=== PATIENT | male | born 1990 | race Caucasian/White ===

== ENCOUNTER 2019-08-10 10:47 | Observation (INO) | payer OTHER ==
[2019-08-10] MEDS ORDERED: SODIUM CHLORIDE 0.9% 1,000 ML IV STA ×2 (10:49)
[2019-08-10] MEDS ORDERED: MORPHINE SULFATE 4 MG/ML SYRINGE IV STA (10:49)
--- NOTE | 2019-08-10 11:13 | ED ---
Abdominal Pain HPI - General Chief Complaint: Abdominal Pain Stated Complaint: diverticulitis Time Seen by Provider: 08/10/19 10:49 Source: EMS Mode of arrival: EMS Limitations: no limitations - History of Present Illness Initial Comments: 29-year-old male presents today for chief complaint of abdominal pain x 1 day. Patient states he has had abdominal pain just above his bellybutton ongoing for the past day he states that he has had vomiting and extreme nausea but denies any lower abdominal pain diarrhea. Patient states he has not vomited since she was at [facility] where he was transferred from because CT of the abdomen pelvis was nonconclusive for differential diagnosis including colitis vs IBD vs appendicitis vs diverticulitis. Patient denies any melanotic stools, constipation, chest pain, shortness of breath. Remaining ROS (-)> Denies known history of IBD. - Related Data Home Medications Medication Instructions Recorded Confirmed No Known Home Medications 08/10/19 08/10/19 Allergies Allergy/AdvReac Type Severity Reaction Status Date / Time No Known Allergies Allergy Unverified 08/10/19 12:09 Review of Systems ROS Statement: Those systems with pertinent positive or pertinent negative responses have been documented in the HPI. ROS Other: All systems not noted in ROS Statement are negative. Past Medical History Past Medical History: No Reported History History of Any Multi-Drug Resistant Organisms: None Reported Past Surgical History: Joint Replacement Additional Past Surgical History / Comment(s): Pyloric stenosis Past Psychological History: No Psychological Hx Reported Smoking Status: Current some day smoker Past Alcohol Use History: Occasional Past Drug Use History: None Reported General Exam - General Exam Comments Initial Comments: General: The patient is awake and alert, appears uncomfortable. Eye: Pupils are equal, round and reactive to light, extra-ocular movements are intact. No nystagmus. There is normal conjunctiva bilaterally. No signs of icterus. Ears, nose, mouth and throat: There are moist mucous membranes and no oral lesions. Neck: The neck is supple, there is no tenderness or JVD. Cardiovascular: There is a regular rate and rhythm. No murmur, rub or gallop is appreciated. Respiratory: Lungs are clear to auscultation, respirations are non-labored, breath sounds are equal. No wheezes, stridor, rales, or rhonchi. Gastrointestinal: Soft, non-distended, abdomen tender to palpation of the epigastric region of the abdomen without masses or organomegaly noted. There is no rebound or guarding present. Musculoskeletal: Normal ROM, no tenderness. Strength 5/5. Sensation intact. Pulses equal bilaterally 2+. Neurological: A&O x 3. CN II-XII intact grossly, There are no obvious motor or sensory deficits. Coordination appears grossly intact. Speech is normal. Skin: Skin is warm and dry and no rashes or lesions are noted. Psychiatric: Cooperative, appropriate mood & affect, normal judgment. Limitations: no limitations Course Vital Signs 08/10/19 08/10/19 08/10/19 10:50 10:53 11:53 Temperature 98.4 F 66 F L 65 F L Pulse Rate 66 Respiratory 18 18 18 Rate Blood Pressure 137/70 142/76 140/72 O2 Sat by Pulse 97 97 97 Oximetry 08/10/19 08/10/19 12:00 12:54 Temperature 63 F L Pulse Rate Respiratory 20 20 Rate Blood Pressure 140/78 O2 Sat by Pulse 97 Oximetry Medical Decision Making - Medical Decision Making 29-year-old male presenting today for chief complaint of abdominal pain transferred for [place] for surgical consultation. Patient pain controlled with morphine in the ER. Patient's laboratory studies were reviewed revealing no elevation in transaminases. Very mild leukocytosis patient is not in acute distress. Patient's CT was reviewed revealing findings consistent with colitis, there are not able to rule appendicitis. Patient was evaluated in the ER by surgeon Dr. Alex olivia admitted to medicine with additional GI consultation. Dr. Suarez is agreeable to admission fo rfurther evaluation of intractable abdominal pain. Disposition Clinical Impression: Abdominal pain, Colitis Disposition: ADMITTED IP TO THIS HOSP Condition: Stable Is patient prescribed a controlled substance at d/c from ED?: No Time of Disposition: 11:50 Decision to Admit Reason: Admit from EC Decision Date: 08/10/19 Decision Time: 11:51
[2019-08-10] MEDS ORDERED: NALOXONE 0.4 MG/ML 1 ML VIAL IV PRN (11:14)
[2019-08-10] MEDS ORDERED: ONDANSETRON 4 MG/2 ML VIAL IVP PRN (11:14)
[2019-08-10] MEDS ORDERED: PIPERACILLIN-TAZOBACTAM 3.375 GM in SODIUM CHLORIDE 0.9% 100 ML IVPB STA (12:13)
--- NOTE | 2019-08-10 13:24 | P.GSCN ---
History of Present Illness Consult date: 08/10/19 Reason for Consult: Abdominal pain History of present illness: The patient stated the pain occurred suddenly yesterday. Initially he denied any previous episodes. Then he admitted he has seen his primary care physician and has had an out patient ultrasound which did not show evidence of cholelithiasis. He believes that the next step in workup is an EGD although he has not seen anyone for this. He will have episodes of epigastric pain and pain radiating to the right abdomen. It can wake him up. He can have nausea. The patient was having vomiting that resolved after receiving Zofran. Had a normal bowel movement yesterday. Denies any problems with diarrhea or constipation. Denies blood in the stool or dark tarry stool. He may have noticed a trace of blood when he vomited yesterday. Patient has a history of pyloric stenosis as an for which she had surgery. Denies fevers or chills. No one else is been ill. Review of Systems All systems: negative Past Medical History Past Medical History: No Reported History History of Any Multi-Drug Resistant Organisms: None Reported Past Surgical History: Joint Replacement Additional Past Surgical History / Comment(s): Pyloromyotomy Past Psychological History: No Psychological Hx Reported Smoking Status: Current some day smoker Past Alcohol Use History: Occasional Past Drug Use History: None Reported Medications and Allergies Home Medications Medication Instructions Recorded Confirmed Type No Known Home Medications 08/10/19 08/10/19 History Allergies Allergy/AdvReac Type Severity Reaction Status Date / Time No Known Allergies Allergy Unverified 08/10/19 12:09 Surgical - Exam Osteopathic Statement: *. No significant issues noted on an osteopathic structural exam other than those noted in the History and Physical/Consult. Vital Signs Temp Pulse Resp BP Pulse Ox 98.4 F 66 18 137/70 97 08/10/19 10:50 08/10/19 10:50 08/10/19 10:50 08/10/19 10:50 08/10/19 10:50 - General well developed, well nourished, no distress - ENT normal mucosa - Neck trachea midline, no lymphadectomy - Respiratory normal respiratory effort, clear to auscultation - Cardiovascular Rhythm: regular - Abdomen Abdomen: soft, tender (Very minimal epigastric tenderness to deep palpation. No tenderness in the lower abdomen), bowel sounds, no guarding, no rigid, no rebound, no distended Results - Labs Labs done at [facility] showed a white count of 10.8, hemoglobin 15.7, normal sodium and potassium, normal liver function tests - Imaging CT scan - abdomen: other (This was first reported from [facility]. There may be some thickened loops of bowel in the lower abdomen and to the left with mild fat stranding) Assessment and Plan (1) Abdominal pain Current Visit: Yes Status: Acute Code(s): R10.9 - UNSPECIFIED ABDOMINAL PAIN SNOMED Code(s): 33646830 Plan: Patient exam is fairly benign. I recommend hydration and antiemetics. Clear liquid diet. Serial exam and lab. Hemoccult any stool. PPI. Currently nonsurgical.
[2019-08-10] MEDS ORDERED: PANTOPRAZOLE 40 MG/10 ML VIAL IVP SCH (13:30)
[2019-08-10] MEDS: MORPHINE SULFATE 4 MG/ML SYRINGE IV PRN ×3 (13:41→21:17)
[2019-08-10] MEDS: KETOROLAC 30 MG/ML 1 ML VIAL IVP SCH ×2 (14:18→17:47)
[2019-08-10] MEDS: DICYCLOMINE 20 MG TAB PO PRN (15:55)
[2019-08-10] MEDS: LEVOFLOXACIN 500MG-D5W PMX 500 MG in DEXTROSE/WATER 1 100ML.BAG IVPB SCH (21:21)
[2019-08-10] MEDS: PANTOPRAZOLE 40 MG/10 ML VIAL IVP SCH (21:22)
[2019-08-10] MEDS: SODIUM CHLORIDE 0.9% 1,000 ML IV SCH (21:23)
[2019-08-10] MEDS: HEPARIN SODIUM,PORCINE 5,000 UNIT/ML 1 ML VIAL SQ SCH (21:57)
[2019-08-10 21:58] LABS: ALT 32 U/L (4-49); AST 22 U/L (17-59); African American GFR (CKD) >90 (>60 ml/min/1.73 sqM); Albumin 3.6 g/dL (3.5-5.0); Alkaline Phosphatase 57 U/L (38-126); Anion Gap 6 mmol/L; Blood Urea Nitrogen 13 mg/dL (9-20); C Reactive Protein 31.4 mg/L (<10.0); Calcium 8.4 mg/dL (8.4-10.2); Carbon Dioxide 23 mmol/L (22-30); Chloride 109 mmol/L (98-107); Glucose 94 mg/dL (74-99); Non-African American GFR(CKD) >90 (>60 ml/min/1.73 sqM); Potassium 4.1 mmol/L (3.5-5.1); Sodium 138 mmol/L (137-145); Total Bilirubin 0.6 mg/dL (0.2-1.3); Total Protein 5.9 g/dL (6.3-8.2)
--- NOTE | 2019-08-10 22:50 | HP ---
HISTORY AND PHYSICAL DATE OF SERVICE: 08/10/2019 CHIEF COMPLAINT: Abdominal pain. HISTORY OF PRESENT ILLNESS: This 29-year-old gentleman with a past medical history of no significant issues being followed by primary physician in the [place] area was complaining of abdominal pain. The patient's previously. Ultrasound was negative. Patient was slated to have gallbladder function studies, but because of increasing pain yesterday the patient went to [facility] and CT scan of the abdomen and pelvis showed some nonspecific thickening of loops of bowel and possibility of inflammation is currently considered and possibility of colitis versus IBD versus appendicitis and diverticulosis was considered in the CT scan report. Patient referred to [facility] and was admitted for further evaluation treatment. There is no history of fever, rigors or chills. No history of headache, loss of consciousness, seizures. Patient reports the patient drinks about half a pot of coffee every day. PAST MEDICAL HISTORY: History of DJD, history of pyloric stenosis in infancy. Medications prior to admission are none. ALLERGIES: None. FAMILY HISTORY: No history of heart disease or strokes in the family. SOCIAL HISTORY: History of smoking. No history of alcohol intake. REVIEW OF SYSTEMS: ENT: No diminished vision. No diminished hearing. CARDIOVASCULAR: No angina. RESPIRATIONS: No cough or hemoptysis. GI as mentioned earlier. no dysuria. Nervous system: No numbness or weakness. Allergy/IMMUNOLOGY: No asthma or hayfever. MUSCULOSKELETAL as mentioned earlier. HEMATOLOGY/ONCOLOGY: No history of anemia. ENDOCRINE: No history of diabetes or hypothyroidism. CONSTITUTIONAL: As mentioned earlier. DERMATOLOGY: Negative. RHEUMATOLOGY: As mentioned earlier. PSYCHIATRIC: As mentioned earlier. PHYSICAL EXAMINATION: Alert and oriented x3. Pulse is 63, blood pressure is 137/74, respiration 18, temperature 97.5, pulse ox 97% on room air. HEENT: Conjunctivae normal. Oral mucosa moist. NECK is no jugular venous distention. No carotid bruit. No lymph node enlargement. CARDIOVASCULAR: S1, S2. RESPIRATION: Breath sounds diminished in the bases. No rhonchi. No crackles. ABDOMEN: Soft, obese, mild diffuse discomfort in the epigastrium, upper part of the abdomen present on admission. No guarding. No rigidity. There is no mass palpable. LEGS: No edema. No swelling. NERVOUS SYSTEM: Higher functions as mentioned earlier. Moves all 4 limbs. No focal motor or sensory deficits. LYMPHATICS: No lymph nodes palpable in the neck, axillae or groin. SKIN: No ulcer, no rash and no bleeding. JOINTS: No active deforming arthropathy. LABS: At this time not available. ASSESSMENT: 1. Abdominal pain, upper abdominal, possible acute gastritis. Rule out enteritis. 2. History of pyloric stenosis surgeries as an . 3. History of degenerative joint disease. 4. History of continued abdominal pain. 5. History of nicotine dependence. RECOMMENDATIONS AND DISCUSSION: In this 29-year-old gentleman who presented with multiple medical issues, at this time I recommend to continue with current medications, management and treatment otherwise proton pump inhibitors. Clear liquids, bland. Avoid coffee. Continue symptomatic treatment also recommended by surgery and as well as a Gastroenterology consultation, possible endoscopes. Guarded prognosis. Further recommendations to follow. Discussed with the patient's family. Understands and agrees. Prognosis guarded. MMODL / IJN: [id number] / MTDD
[2019-08-10] MEDS: metroNIDAZOLE-NS PMX 500 MG in SALINE 1 100ML.BAG IVPB SCH (23:09)
--- NOTE | 2019-08-10 23:35 | P.CONS ---
History of Present Illness - Reason for Consult Consult date: 08/10/19 Abdominal pain Requesting physician: Jass Echeverria - Chief Complaint Abdominal pain - History of Present Illness 29-year-old male with no significant medical comorbidities and a remote history of pyloric stenosis treated surgically as an who presented to the hospital as a transfer from an outside facility where he had presented with complaints of abdominal pain. The patient reported one day of severe abdominal pain. Pain was above the patient's bilirubin and described as sharp and constant in nature. No prior episodes of similar pain reported. He denies any radiation of the pain. He reports some associated nausea and one episode of nonbloody emesis. He denies any change in bowel habits, reporting daily formed bowel movements normal in color with no melena or hematochezia reported. No prior endoscopic evaluations reported. No sick contacts, or unusual foods or new medications reported prior to developing the symptoms. Denies any associated fever or chills. Computed tomography scan performed at the outside facility was concerning for some thickened loops of bowel. Currently he is reporting pain is improved but still present. Liver enzymes normal with normal ESR and mildly elevated CRP at 31. Review of Systems REVIEW OF SYSTEMS: CONSTITUTIONAL: Denies any fevers, chills, weight change or fatigue. CARDIOVASCULAR: Denies any chest pain, palpitations high or low blood pressures RESPIRATORY: Denies any shortness of breath, hemoptysis or cough. GENITOURINARY: No dysuria or hematuria. MUSCULOSKELETAL: No weakness reported. SKIN: Denies any new rashes or lesions, jaundice or pallor. PSYCHIATRIC: Denies any depression or anxiety. NEUROLOGY: Denies headache, denies any new focal deficits. EARS/NOSE/THROAT: No recent hearing change, congestion, nasal discharge or sore throat. EYES: No pain in eyes, discharge or change in vision. GASTROINTESTINAL: As per HPI. Past Medical History Past Medical History: No Reported History History of Any Multi-Drug Resistant Organisms: None Reported Past Surgical History: Joint Replacement Additional Past Surgical History / Comment(s): Right ankle replacement (2009), Pyloromyotomy Past Psychological History: No Psychological Hx Reported Smoking Status: Current some day smoker Past Alcohol Use History: Occasional Past Drug Use History: None Reported Additional History: Family history: Reviewed with the patient is noncontributory to current medical presentation Medications and Allergies Home Medications Medication Instructions Recorded Confirmed Type No Known Home Medications 08/10/19 08/10/19 History Allergies Allergy/AdvReac Type Severity Reaction Status Date / Time No Known Allergies Allergy Unverified 08/10/19 12:09 Physical Exam Vitals: Vital Signs Temp Pulse Pulse Resp BP BP Pulse Ox 08/10/19 13:35 97.4 F L 68 137/76 08/10/19 12:54 20 08/10/19 12:00 63 F L 20 140/78 97 08/10/19 11:53 65 F L 18 140/72 97 08/10/19 10:53 66 F L 18 142/76 97 08/10/19 10:50 98.4 F 66 18 137/70 97 Intake and Output 08/09/19 08/10/19 08/10/19 22:59 06:59 14:59 Intake Total 50 Balance 50 Intake: Intake, IV Titration 50 Amount Sodium Chloride 0.9% 1, 50 000 ml @ 999 mls/hr IV . Q1H1M STA Rx#:[id number] Oral 0 Tube Feeding 0 Other: Weight 113.398 kg On physical examination, patient appears comfortable in no apparent distress. HEAD: Normocephalic, atraumatic. EYES: No scleral icterus. No conjunctival injection. MOUTH: No lesions, tongue midline. NECK: Trachea midline, no gross abnormalities. CHEST: Clear to auscultation with no wheezing or rhonchi appreciated. HEART: Regular rate and rhythm. ABDOMEN: Soft, mildly tender to palpation. Bowel sounds are positive. No organomegaly. No guarding or rigidity. EXTREMITIES: No pedal edema. SKIN: No rashes, no jaundice. NEUROLOGIC: Alert and oriented x3. No focal deficits. Results CBC & Chem 7: 08/10/19 21:18 Abdominal x-ray: report reviewed (Computed tomography scan of the abdomen from outside facility with findings suggestive of some bowel wall thickening) Assessment and Plan (1) Colitis Narrative/Plan: 29-year-old male with no significant medical comorbidities who presented to the hospital for one day of abdominal pain described as above the umbilicus and sharp and constant in nature. No prior episodes of similar pain. Remote history of pyloric stenosis as an infant. Denies any change in bowel habits, fevers, chills, sick contacts, unusual foods or new medications. CT of the abdomen from outside facility was suggestive of bowel wall thickening concerning for colitis. ESR normal and CRP mildly elevated with normal liver enzymes. Unknown etiology with acuity of symptoms suggestive of infectious colitis, ischemia or inflammatory process less likely. Current Visit: Yes Status: Acute Code(s): K52.9 - NONINFECTIVE GASTROENTERITIS AND COLITIS, UNSPECIFIED SNOMED Code(s): 89588863 (2) Abdominal pain Current Visit: Yes Status: Acute Code(s): R10.9 - UNSPECIFIED ABDOMINAL PAIN SNOMED Code(s): 17374723 Plan: Supportive care Clear liquid diet Agree with antibiotic therapy, currently on levofloxacin and Flagyl Bentyl 20 mg 4 times a day as needed added for abdominal spasming Continue to monitor CBC, CMP ESR and CRP ordered No plans for endoscopic evaluation at this time, however patient would benefit from colonoscopy in the outpatient setting in 4-6 weeks for further evaluation which was discussed with the patient at length Thank you for allowing us dysphagia in the care of the patient we'll continue to follow
[2019-08-11] MEDS: KETOROLAC 30 MG/ML 1 ML VIAL IVP SCH ×5 (03:07→23:27)
[2019-08-11 04:04] LABS: Appearance,Urine Clear (Clear); Bilirubin,Urine Negative (Negative); Blood,Urine Negative (Negative); Color,Urine Yellow; Glucose,Urine (UA) Negative (Negative); Ketones,Urine Negative (Negative); Leukocyte Esterase,Urine Negative (Negative); Nitrite,Urine Negative (Negative); PH, Urine 6.5 (5.0-8.0); Protein,Urine Negative (Negative); Urobilinogen,Urine <2.0 mg/dL (<2.0)
[2019-08-11] MEDS: metroNIDAZOLE-NS PMX 500 MG in SALINE 1 100ML.BAG IVPB SCH ×3 (05:01→21:09)
[2019-08-11] MEDS: HEPARIN SODIUM,PORCINE 5,000 UNIT/ML 1 ML VIAL SQ SCH ×2 (07:29→20:05)
[2019-08-11] MEDS: PANTOPRAZOLE 40 MG/10 ML VIAL IVP SCH ×2 (07:30→20:05)
[2019-08-11] MEDS: SODIUM CHLORIDE 0.9% 1,000 ML IV SCH ×2 (07:43→21:09)
[2019-08-11] MEDS: MORPHINE SULFATE 4 MG/ML SYRINGE IV PRN ×4 (08:27→20:05)
[2019-08-11 09:24] LABS: Basophils % (A) 0 %; Eosinophils # (A) 0.2 k/uL (0-0.7); Eosinophils % (A) 3 %; Lymphocytes # (A) 1.5 k/uL (1.0-4.8); Lymphocytes % (A) 27 %; MCH 30.7 pg (25.0-35.0); MCHC 34.2 g/dL (31.0-37.0); MCV 89.8 fL (80.0-100.0); Monocytes # (A) 0.4 k/uL (0-1.0); Monocytes % (A) 7 %; Neutrophils # (A) 3.5 k/uL (1.3-7.7); Neutrophils % (A) 61 %; Platelet Count 159 k/uL (150-450); RBC 4.57 m/uL (4.30-5.90); RDW 13.1 % (11.5-15.5); WBC 5.7 k/uL (3.8-10.6)
[2019-08-11 09:38] LABS: ALT 29 U/L (4-49); AST 21 U/L (17-59); African American GFR (CKD) >90 (>60 ml/min/1.73 sqM); Alkaline Phosphatase 64 U/L (38-126); Anion Gap 8 mmol/L; Blood Urea Nitrogen 11 mg/dL (9-20); C Reactive Protein 44.9 mg/L (<10.0); Calcium 8.8 mg/dL (8.4-10.2); Carbon Dioxide 24 mmol/L (22-30); Chloride 108 mmol/L (98-107); Glucose 118 mg/dL (74-99); Non-African American GFR(CKD) >90 (>60 ml/min/1.73 sqM); Potassium 3.8 mmol/L (3.5-5.1); Sodium 140 mmol/L (137-145); Total Bilirubin 0.7 mg/dL (0.2-1.3); Total Protein 6.4 g/dL (6.3-8.2)
--- NOTE | 2019-08-11 10:44 | P.PN ---
Subjective Progress Note Date: 08/11/19 Principal diagnosis: Abdominal pain The patient is seen on rounds. He is feeling better today. Continues to have epigastric discomfort. No nausea or vomiting. Tolerating clear liquids. No diarrhea . Objective - Vital Signs Vital signs: Vital Signs Temp 97.5 F L 08/11/19 05:00 Pulse 65 08/11/19 05:00 Resp 17 08/11/19 07:53 BP 128/76 08/11/19 05:00 Pulse Ox 96 08/11/19 05:00 Intake & Output 08/10/19 08/11/19 08/11/19 18:59 06:59 18:59 Intake Total 50 475 Balance 50 475 Weight 113.398 kg Intake: Intake, IV Titration 50 Amount Sodium Chloride 0.9% 1, 50 000 ml @ 999 mls/hr IV . Q1H1M STA Rx#:[id number] Oral 0 475 Tube Feeding 0 Other: Voiding Method Toilet Toilet Toilet # Voids 1 - Constitutional General appearance: Present: cooperative, no acute distress - Respiratory Respiratory: bilateral: CTA - Gastrointestinal General gastrointestinal: Present: normal bowel sounds, soft, tenderness (Mild epigastric tenderness without guarding or rebound) - Labs CBC & Chem 7: 08/11/19 08:58 08/11/19 08:58 Labs: Abnormal Lab Results - Last 24 Hours (Table) 08/10/19 08/11/19 Range/Units 21:18 08:58 Chloride 109 H 108 H (98-107) mmol/L Glucose 118 H (74-99) mg/dL C-Reactive Protein 31.4 H 44.9 H (<10.0) mg/L Total Protein 5.9 L (6.3-8.2) g/dL Assessment and Plan (1) Abdominal pain Current Visit: Yes Status: Acute Code(s): R10.9 - UNSPECIFIED ABDOMINAL PAIN SNOMED Code(s): 74018148 Plan: Clinically the patient is improved. There is no leukocytosis. No findings suggestive of acute appendicitis or diverticulitis. I will advance the diet. He was seen by GI yesterday. Recommend follow-up with GI as outpatient for consideration of endoscopy. The patient is nonsurgical. General surgery will follow up as needed.
[2019-08-11 12:50] LABS: Erythrocyte Sedimentation Rate 9 mm/hr (0-15)
[2019-08-11] MEDS: DICYCLOMINE 20 MG TAB PO PRN (17:13)
--- NOTE | 2019-08-11 19:14 | PN ---
PROGRESS NOTE DATE OF SERVICE: 08/11/2019 This 29-year-old gentleman who was admitted with significant upper abdominal symptoms, is being closely monitored. CT scan showed abnormal findings including possible enteritis. Dr. Johnson is following the patient. Symptomatic treatment is being offered at this time. The patient is on full liquids currently. There is no evidence of acute appendicitis or diverticulitis per Dr. Johnson. GI is planning endoscopies most likely as an outpatient. PAST MEDICAL HISTORY: Reviewed. REVIEW OF SYSTEMS: CARDIOVASCULAR SYSTEM: No angina. RESPIRATORY: As mentioned earlier. GI: As mentioned earlier. : No dysuria. NERVOUS SYSTEM: As mentioned earlier. CURRENT MEDICATIONS: 1. Bentyl 10 mg b.i.d. p.r.n. 2. Heparin subcu b.i.d. 3. Toradol 30 mg q.6h p.r.n. 4. Levaquin 500 mg b.i.d. 5. Flagyl 500 mg q.8h. 6. Morphine. 7. Narcan. 8. Zofran. 9. Protonix. PHYSICAL EXAM: Patient is alert oriented x3. Pulse 65, blood pressure 130/72, respiration 18, temperature 97.4, pulse ox 98% on room air. HEENT: Conjunctivae normal. Oral mucosa moist. NECK: No jugular venous distention. No lymph node enlargement. CARDIOVASCULAR: S1, S2. RESPIRATORY: Diminished breath sounds at the bases. No rhonchi, no crackles. ABDOMEN: Soft. Mild diffuse discomfort on palpation, especially the epigastrium. No guarding. There is no mass palpable. LEGS: No swelling. NERVOUS SYSTEM: No focal deficits. LABS: WBC 5.2, hemoglobin 14. ESR is 6. CRP is 31.4, which is slightly elevated. ASSESSMENT: 1. Abdominal pain, upper abdominal pain, possible acute gastritis. Rule out enteritis. 2. History of pyloric stenosis surgery as an infant. 3. History of degenerative joint disease. 4. History of continued abdominal pain. 5. History of nicotine dependence. 6. Elevated CRP. RECOMMENDATIONS AND DISCUSSION: In this 29-year-old gentleman who presented with multiple complex medical issues, we will monitor the patient closely, continue the current management and symptomatic treatment. I recommend continuing with Protonix twice daily and I would also recommend continue with IV fluids. Advance diet slowly. Otherwise, I would also recommend course of empiric antibiotics as well. Otherwise, closely follow with Surgery and Gastroenterology. Prognosis guarded because of multiple complex medical issues. The patient also might require a repeat CT scan down the line if continues to be symptomatic. Discussed with the patient and the family and understands. Further recommendations to follow. MMODL / IJN: [id number] /
[2019-08-11] MEDS: LEVOFLOXACIN 500MG-D5W PMX 500 MG in DEXTROSE/WATER 1 100ML.BAG IVPB SCH (20:04)
[2019-08-12] MEDS: MORPHINE SULFATE 4 MG/ML SYRINGE IV PRN ×2 (02:16→07:41)
[2019-08-12] MEDS: KETOROLAC 30 MG/ML 1 ML VIAL IVP SCH (05:00)
[2019-08-12] MEDS: SODIUM CHLORIDE 0.9% 1,000 ML IV SCH (05:01)
[2019-08-12] MEDS: metroNIDAZOLE-NS PMX 500 MG in SALINE 1 100ML.BAG IVPB SCH (05:01)
[2019-08-12 05:24] VITALS: BP 135/73; PULSE 55; RESP 15; TEMP 97.5
[2019-08-12] MEDS: PANTOPRAZOLE 40 MG/10 ML VIAL IVP SCH (07:42)
[2019-08-12] MEDS: HEPARIN SODIUM,PORCINE 5,000 UNIT/ML 1 ML VIAL SQ SCH (09:26)
[2019-08-12 09:36] LABS: Basophils % (A) 0 %; Eosinophils # (A) 0.1 k/uL (0-0.7); Eosinophils % (A) 3 %; HCT 41.3 % (39.0-53.0); HGB 13.9 gm/dL (13.0-17.5); Lymphocytes # (A) 1.6 k/uL (1.0-4.8); Lymphocytes % (A) 34 %; MCH 30.4 pg (25.0-35.0); MCHC 33.7 g/dL (31.0-37.0); MCV 90.2 fL (80.0-100.0); Mean Platelet Volume 9.1; Monocytes # (A) 0.3 k/uL (0-1.0); Monocytes % (A) 6 %; Neutrophils # (A) 2.6 k/uL (1.3-7.7); Neutrophils % (A) 55 %; Platelet Count 155 k/uL (150-450); RBC 4.59 m/uL (4.30-5.90); RDW 12.9 % (11.5-15.5); WBC 4.7 k/uL (3.8-10.6)
--- NOTE | 2019-08-13 08:12 | DS ---
DISCHARGE SUMMARY DATE OF SERVICE: 08/12/2019 FINAL DIAGNOSES: 1. Abdominal pain with upper abdominal pain with possible acute gastritis possibly enteritis improving. 2. History of pyloric stenosis and surgery as an infant. 3. History of degenerative joint disease. 4. History of continued abdominal pain. 5. History of nicotine dependence. 6. Elevated CRP. DISCHARGE DISPOSITION: The patient will be discharged in stable condition with guarded prognosis. HISTORY OF PRESENT ILLNESS: This 29-year-old gentleman with a past medical history of multiple medical problems admitted with abdominal pain. The possibility of enteritis or gastritis are considered. CAT scan was reviewed by Dr. Johnson and the patient treated symptomatically improved significantly. Recommended to reduce the amount of coffee at this time. On exam, vitals are stable. CARDIOVASCULAR: S1, S2 muffled. ABDOMEN: Soft. NERVOUS SYSTEM: No focal deficits. DISCHARGE ADVISE: 1. Diet is soft, bland as mentioned earlier. 2. Follow up with Dr. Vogt in 2 to 3 days. Medications will be: 1. Bentyl 20 mg q.i.d. p.r.n. 2. Cipro 500 mg b.i.d. for 3 days. 3. Flagyl 500 mg q.8 for 3 days. 4. Protonix 40 mg p.o. b.i.d. Possible endoscope as an outpatient. Follow up with Surgery as recommended. MMODL / IJN: [id number] / MTDD
== END 2019-08-12 11:40 | disposition home or self-care (01) ==
LOC: EC 10:47 → 6NMEDSUR 12:00
PROVIDERS: ADMIT Internal Medicine; ATTEND Internal Medicine
DX: K52.9 Noninfective gastroenteritis and colitis, unspecified (principal); R10.10 Upper abdominal pain, unspecified; R10.33 Periumbilical pain; R11.2 Nausea with vomiting, unspecified; Z87.19 Personal history of other diseases of the digestive system; M19.90 Unspecified osteoarthritis, unspecified site; F17.200 Nicotine dependence, unspecified, uncomplicated; R79.82 Elevated C-reactive protein (CRP); Z98.890 Other specified postprocedural states; Z96.661 Presence of right artificial ankle joint
CPT/HCPCS: 96376 ×3; 96361 ×3; 96366 ×3; 96367; 96375 ×2; 96365; 99285; 80053 ×2; 85652 ×2; 85025 ×2; 86140 ×2; 81003; G0378 ×3; J2543; J2270 ×3; J1956 ×2; J1885 ×3; C9113 ×3